=== PATIENT | female | born 1965 | race Caucasian/White ===

== ENCOUNTER 2020-02-28 07:38 | Day surgery (SDC) | payer SELFPAY ==
[2020-02-28] MEDS ORDERED: Sodium Chloride 0.9% 1,000 ML IV SCH (08:15)
[2020-02-28] MEDS ORDERED: fentaNYL 100 MCG/2 ML SDV ONE (09:31)
[2020-02-28] MEDS ORDERED: Propofol 200 MG/20 ML SDV ONE (09:31)
[2020-02-28] MEDS ORDERED: Midazolam 1 MG/ML 2 ML SDV ONE (09:31)
--- NOTE | 2020-02-28 15:44 | OR ---
DATE OF PROCEDURE: 02/28/2020 SURGEON: Devendra Vital MD PROCEDURE: Colonoscopy. FINDINGS: 1. Descending colon polyp, approximately 5 mm, completely removed using hot snare wire device. 2. Very mild inflammation of rectum (biopsied using cold biopsy forceps to rule out colitis and inflammatory bowel disease. 3. No etiology for diarrhea. RISKS: Risks, benefits, alternatives, and limitations including, but not limited to, infection, bleeding, and perforation were explained to the patient who wished to proceed. PROCEDURE IN DETAIL: The patient was placed in a left lateral decubitus position. Digital rectal exam was performed without abnormality. Scope was introduced and advanced atraumatically to the ileocecal valve. The scope was brought back through the ascending, transverse, descending colon, and retroflexed. No abnormalities on retroflexion. In the rectum, very mild inflammation was noted. This was biopsied using cold biopsy forceps. The polyp had been completely removed. No abnormal bleeding was noted. The patient tolerated the procedure well. Devendra Vital MD /[id number]
== END 2020-02-28 11:09 | disposition home or self-care (01) ==
LOC: JP.SDS 07:38
PROVIDERS: ATTEND Surgery
DX: D12.4 Benign neoplasm of descending colon (principal); K62.89 Other specified diseases of anus and rectum; E66.9 Obesity, unspecified; E03.9 Hypothyroidism, unspecified; Z68.28 Body mass index [BMI] 28.0-28.9, adult
CPT/HCPCS: 45380; 45385; 88305; J2250; J2704; J3010; J7030